=== PATIENT | female | born 1995 | race Caucasian/White ===

== ENCOUNTER 2020-02-08 12:13 | Emergency (ER) | payer BC, MEDICAID, SELFPAY ==
--- NOTE | 2020-02-08 12:20 | ECG_ITS ---
Measurements Intervals [place] Rate: 102 P: 83 MD: 126 QRS: 70 QRSD: 78 T: 28 QT: 316 QTc: 412 Interpretive Statements SINUS TACHYCARDIA POSSIBLE LEFT ATRIAL ENLARGEMENT NONSPECIFIC ST & T-WAVE ABNORMALITY- ANTEROLAT/INF LEADS ABNORMAL ECG Electronically Signed On 02-08-2020 12:48:22 CDT by Tyron Aguilar D.O.
[2020-02-08 12:24] VITALS: BP 104/54; PULSE 94; RESP 14; TEMP 36.6; O2SAT 99
[2020-02-08 12:37] LABS: Basophils Percent Auto 0.2 % (0.2-1.2); Eosinophils Absolute Auto 0.1 K/mm3 (0-0.3); Hematocrit 36.3 % (37.0-47.0); Hemoglobin 12.6 g/dL (12.0-15.0); Immature Granulocyte Absolute 0.06 K/mm3 (0.00-0.031); Immature Granulocyte Percent A 0.5 % (0-0.5); Lymphocytes Absolute Auto 1.58 K/mm3 (0.9-3.2); Lymphocytes Percent Auto 13.9 % (18.3-44.2); Mean Corpuscular HGB Conc 34.7 g/dl (32-36); Mean Corpuscular Hemoglobin 29.8 pg (26-34); Mean Corpuscular Volume 85.8 fl (80-100); Mean Platelet Volume 10.5 fl (7.4-10.4); Monocytes Absolute Auto 0.4 K/mm3 (0.1-0.6); Monocytes Percent Auto 3.5 % (2.6-8.5); Neutrophils Absolute Auto 9.2 K/mm3 (1.3-6.7); Neutrophils Percent Auto 80.9 % (45.5-73.1); Platelet Count Result 291 k/mm3 (150-375); Red Blood Count 4.23 M/mm3 (4.2-5.4); Red Cell Distribution Width 13.6 % (11.5-14.5); White Blood Count 11.4 K/mm3 (4.5-10.0)
[2020-02-08 13:01] LABS: Blood Urea Nitrogen 7 mg/dL (7-17); Calcium 8.8 mg/dL (8.4-10.2); Carbon Dioxide 21 mmol/L (22-30); Chloride 105 mmol/L (98-107); Estimated CRCL calculation 112 ml/min; Estimated Glomerular Filt Rate > 60; Glucose 83 mg/dL (65-105); Potassium 3.9 mmol/L (3.4-5.0); Sodium 134 mmol/L (137-145)
[2020-02-08 13:38] LABS: Add Urine Microscopic? YES; Appearance Urine Cloudy (Clear); Bacteria Urine Trace /hpf; Bilirubin Urine Negative (Negative); Color Urine Yellow (Yellow); Glucose Urine UA Negative (Negative); Ketones Urine Negative (Negative); Leukocyte Esterase Ur 3+ LEU/UL (Negative); Mucus Urine Rare /lpf; Nitrate Urine Negative (Negative); Protein Urine 2+ mg/dL (Negative); Specific Grav Ur 1.018 (1.001-1.035); Squamous Epithelial Cell Urine Few /hpf (Few); WBC Urine >75 /hpf
[2020-02-08 13:42] LABS: Blood Urine Negative (Negative)
[2020-02-08 14:13] VITALS: BP 115/70; PULSE 78
[2020-02-08 14:16] VITALS: BP 121/68; PULSE 74
[2020-02-08 14:17] VITALS: BP 122/71; PULSE 92
--- NOTE | 2020-02-08 14:19 | ED.SYNCOPE ---
HPI - Syncope General Chief Complaint: Syncope Stated Complaint: 12 WEEK PREG, SYNCOPE Time Seen by Provider: 02/08/20 13:32 Source: patient and family Mode of arrival: ambulatory Limitations: no limitations History of Present Illness HPI narrative: Patient is 24 years old female, 12 weeks , was a standing in the kitchen making breakfast suddenly felt lightheadedness, dizziness and passed out for about few seconds, patient denies any injuries or similar symptoms. Patient on vitamins, does not smoke, does not drink or use any drugs. Patient is 2, para 1, 0. Currently patient is asymptomatic. Related Data Allergies Allergy/AdvReac Type Severity Reaction Status Date / Time Penicillins Allergy Intermediate Rash Verified 09/05/17 14:43 monosodium glutamate Allergy Mild RASH Verified 09/17/17 14:55 Review of Systems Review of Systems: Narrative: CONSTITUTIONAL: Denies fever, chills, or sweats. EYES: Denies visual changes, redness, or discharge. ENT: Denies rhinorrhea, congestion, sore throat, or otalgia. CARDIOVASCULAR: Denies chest pain, palpitations, or edema. RESPIRATORY: Denies cough or dyspnea. GASTROINTESTINAL: Denies abdominal pain, nausea, vomiting, or diarrhea. GENITOURINARY: Denies dysuria or hematuria. SKIN: Denies rash or itching. MUSCULOSKELETAL: Denies back pain, joint pain, or myalgia. NEUROLOGIC: Denies headache, numbness, or weakness. PSYCHIATRIC: Denies anxiety or depression. PMFSH Social History Social History Gender identity (if verbalized by the patient): Female Exam Narrative: Exam Narrative: General appearance: Well-developed, well-nourished Skin: Normal color Head: Normocephalic, nontraumatic Eyes: Clear conjunctiva ENT: Oropharynx normal, ears normal, nose normal Neck: Supple, nontender Chest and respiratory: Airway patent, no respiratory distress, no accessory muscle use Heart: Regular rate/rhythm Abdomen: Soft, nontender, no organomegaly, quiet bowel sounds Vascular: Normal peripheral pulses, normal capillary refill. Musculoskeletal: Normal range of motion, nontender back Neurologic: Alert and oriented ?3, HEEL SEAT FITTER is normal as tested, no gross motor deficit Course Course Emergency Course: Improving Vital Signs Vital signs: Vital Signs Temperature 36.6 C 02/08/20 12:24 Pulse Rate 94 02/08/20 12:24 Respiratory Rate 14 02/08/20 12:24 Blood Pressure 104/54 L 02/08/20 12:24 Pulse Oximetry 99 02/08/20 12:24 Temperature 36.6 C 02/08/20 12:24 Pulse Rate 92 02/08/20 14:17 Respiratory Rate 14 02/08/20 12:24 Blood Pressure 122/71 02/08/20 14:17 Pulse Oximetry 99 02/08/20 12:24 MDM - Syncope MDM Narrative Medical decision making narrative: Orthostatic hypotension is my concern. Patient developed lightheadedness and dizziness prior to loss of consciousness. Patient is 12 weeks . My plan to get orthostatic blood pressure, labs, UA, IV fluid. Further plan to follow Lab Data Result diagrams: 02/08/20 12:30 02/08/20 12:30 Labs: Lab Results 02/08/20 02/08/20 02/08/20 Range/Units 12:30 12:30 13:24 WBC 11.4 H (4.5-10.0) K/mm3 RBC 4.23 (4.2-5.4) M/mm3 Hgb 12.6 (12.0-15.0) g/dL Hct 36.3 L (37.0-47.0) % MCV 85.8 (80-100) fl MCH 29.8 (26-34) pg MCHC 34.7 (32-36) g/dl RDW 13.6 (11.5-14.5) % Plt Count 291 (150-375) k/mm3 MPV 10.5 H (7.4-10.4) fl Immature Gran % (Auto) 0.5 (0-0.5) % Neut % (Auto) 80.9 H (45.5-73.1) % Lymph % (Auto) 13.9 L (18.3-44.2) % [place] % (Auto) 3.5 (2.6-8.5) % Eos % (Auto)
[2020-02-08] MEDS: SODIUM CHLORIDE 0.9% IV 1,000 ML 999 ML IV CONT (14:27)
[2020-02-08 15:38] VITALS: BP 138/75; PULSE 72; RESP 16; O2SAT 100
== END 2020-02-08 15:39 | disposition home or self-care (01) ==
PROVIDERS: Emergency Medicine; Emergency Provider Emergency Medicine; PCP Internal Medicine
DX: O23.31 Infections of other parts of urinary tract in pregnancy, first trimester (principal); Z3A.12 12 weeks gestation of pregnancy
CPT/HCPCS: 36415; 80048; 81001; 85025; 87077; 87086; 87088; 87186; 93005; 96361; 96365; 99284; J0696; J7030

== ENCOUNTER 2020-08-09 12:15 | Inpatient (IN) | payer BC, OTHER, SELFPAY ==
[2020-08-09] VITALS (53 sets, daily range): BP systolic 72–123; BP diastolic 32–94; PULSE 65–107; RESP 18; TEMP 36.1–37.2; O2SAT 97–100; BMI 30.4
[2020-08-09 12:48] LABS: Basophils Percent Auto 0.3 % (0.2-1.2); Eosinophils Absolute Auto 0.1 K/mm3 (0-0.3); Eosinophils Percent Auto 0.7 % (0-4.4); Hematocrit 31.8 % (37.0-47.0); Hemoglobin 10.3 g/dL (12.0-15.0); Immature Granulocyte Absolute 0.11 K/mm3 (0.00-0.031); Lymphocytes Absolute Auto 1.88 K/mm3 (0.9-3.2); Lymphocytes Percent Auto 17.5 % (18.3-44.2); Mean Corpuscular HGB Conc 32.4 g/dl (32-36); Mean Corpuscular Hemoglobin 27.5 pg (26-34); Mean Corpuscular Volume 84.8 fl (80-100); Mean Platelet Volume 10.9 fl (7.4-10.4); Monocytes Absolute Auto 0.6 K/mm3 (0.1-0.6); Monocytes Percent Auto 5.2 % (2.6-8.5); Neutrophils Absolute Auto 8.1 K/mm3 (1.3-6.7); Neutrophils Percent Auto 75.3 % (45.5-73.1); Platelet Count Result 237 k/mm3 (150-375); Red Blood Count 3.75 M/mm3 (4.2-5.4); Red Cell Distribution Width 13.7 % (11.5-14.5); White Blood Count 10.8 K/mm3 (4.5-10.0)
[2020-08-09] MEDS: LACTATED RINGERS 1,000 ML 125 ML IV CONT ×3 (12:52→18:01)
[2020-08-09] MEDS: OXYTOCIN 30 UNITS/NS 500 ML 30 UNITS/500 ML BAG IV CONT (12:53)
--- NOTE | 2020-08-09 12:55 | LDADM ---
This patient, Eden Mims, was admitted to Labor/Delivery/Recovery 103 on 08/09/20 at 12:15. Plans for labor, pain management and were discussed with patient. Patient/family oriented to hospital policies and general routines including ID bracelet, bed and alarms, visiting hours, pain management, procedures, bathroom and other care routines, personal items, smoking policy, room service/diet and guest tray routines, infant security routines, and visiting hours. Patient/Family are encouraged to report perceived risks to care and to ask questions if they do not understand what they are told or what they should do. See OBIX for further documentation.
[2020-08-09 13:04] LABS: Potassium 3.7 mmol/L (3.4-5.0)
[2020-08-09 13:06] LABS: Alanine Aminotransferase 10 U/L (4-35); Albumin Level 3.7 g/dL (3.5-5.1); Alkaline Phosphatase 170 U/L (38-126); Anion Gap 8 mmol/L (8-16); Aspartate Amino Transferase 21 U/L (14-36); Bilirubin,Total 0.3 mg/dL (0.2-1.3); Blood Urea Nitrogen 6 mg/dL (7-17); Calcium 8.8 mg/dL (8.4-10.2); Carbon Dioxide 23 mmol/L (22-30); Chloride 106 mmol/L (98-107); Estimated CRCL calculation 130 ml/min; Estimated Glomerular Filt Rate > 60; Glucose 94 mg/dL (65-105); Sodium 137 mmol/L (137-145)
--- NOTE | 2020-08-09 13:30 | WPDOBADMIT ---
Obstetrics - Admit Note Admission Note: Pt here for induction of labor d/t cholestasis. AROM moderate amount of clear odorless fluid. record reviewed. No pertinent additions to the history and/or any subsequent changes in the physical findings that are not consistent with the expected course of the were found. Additions to the history and/or subsequent changes in the physical findings follow. None.
--- NOTE | 2020-08-09 16:02 | WPDANESEPPF ---
Anes - Initial Pre Proc Eval Procedure: labor epidural Date/Time: 08/09/20 16:02 Surgeon: Abida Washington MD Pre Op Diagnosis: labor pain Pre Op Diagnosis: ind Patient Data Age: 24 Gender: F Height: 1.55 m Weight: 73 kg Last Vital Signs Temp 37.2 C 08/09/20 15:30 Pulse 76 08/09/20 16:00 BP 108/51 L 08/09/20 16:00 Pulse Ox 99 08/09/20 15:59 Allergies Allergy/AdvReac Type Severity Reaction Status Date / Time Penicillins Allergy Intermediate Rash Verified 07/21/20 15:47 monosodium glutamate Allergy Mild RASH Verified 07/21/20 15:47 Home Medications Medication Instructions Recorded Confirmed Type calcium carbonate [Tums Ultra] 400 mg PO HS 07/21/20 08/09/20 History prenat.vits,scott,[id number] 1 tablet DAILY 07/21/20 08/09/20 History [ #2] Laboratory Tests 08/09/20 08/09/20 08/09/20 12:33 12:33 12:33 WBC 10.8 K/mm3 H K/mm3 (4.5-10.0) RBC 3.75 M/mm3 L M/mm3 (4.2-5.4) Hgb 10.3 g/dL L g/dL (12.0-15.0) Hct 31.8 % L % (37.0-47.0) MCV 84.8 fl fl (80-100) MCH 27.5 pg pg (26-34) MCHC 32.4 g/dl g/dl (32-36) RDW 13.7 % % (11.5-14.5) Plt Count 237 k/mm3 k/mm3 (150-375) MPV 10.9 fl H fl (7.4-10.4) Immature Gran % (Auto) 1.0 % H % (0-0.5) Neut % (Auto) 75.3 % H % (45.5-73.1) Lymph % (Auto) 17.5 % L % (18.3-44.2) [place] % (Auto) 5.2 % % (2.6-8.5) Eos % (Auto) 0.7 % % (0-4.4) Baso % (Auto) 0.3 % % (0.2-1.2) Lymph # (Auto) 1.88 K/mm3 K/mm3 (0.9-3.2) [place] # (Auto) 0.6 K/mm3 K/mm3 (0.1-0.6) Eos # (Auto) 0.1 K/mm3 K/mm3 (0-0.3) Baso # (Auto) 0.0 K/mm3 K/mm3 (0.0-0.1) Abs Immat Gran (auto) 0.11 K/mm3 H K/mm3 (0.00-0.031) Absolute Neuts (auto) 8.1 K/mm3 H K/mm3 (1.3-6.7) Absolute Nucleated RBC 0.0 K/mm3 K/mm3 (0.0-0.012) Nucleated RBC % 0.0 % % (0.0-0.2) Sodium Potassium Chloride Carbon Dioxide Anion Gap BUN Creatinine Estim Creat Clear Calc Estimated GFR Glucose Calcium Total Bilirubin AST ALT Alkaline Phosphatase Total Protein Albumin Cholic Acid Deoxycholic Acid Chenodeoxycholic Acid Total Bile Acids RPR Pending Blood Type A Positive Antibody Screen Negative 08/09/20 08/09/20 12:33 12:33 WBC RBC Hgb Hct MCV MCH MCHC RDW Plt Count MPV Immature Gran % (Auto) Neut % (Auto) Lymph % (Auto) [place] % (Auto) Eos % (Auto) Baso % (Auto) Lymph # (Auto) [place] # (Auto) Eos # (Auto) Baso # (Auto) Abs Immat Gran (auto) Absolute Neuts (auto) Absolute Nucleated RBC Nucleated RBC % Sodium 137 mmol/L mmol/L (137-145) Potassium 3.7 mmol/L mmol/L (3.4-5.0) Chloride 106 mmol/L mmol/L (98-107) Carbon Dioxide 23 mmol/L mmol/L (22-30) Anion Gap 8 mmol/L mmol/L (8-16) BUN 6 mg/dL L mg/dL (7-17) Creatinine 0.50 mg/dL L mg/dL (0.7-1.0) Estim Creat Clear Calc 130 ml/min ml/min Estimated GFR > 60 (59 - ) Glucose 94 mg/dL mg/dL (65-105) Calcium 8.8 mg/dL mg/dL (8.4-10.2) Total Bilirubin 0.3 mg/dL mg/dL (0.2-1.3) AST 21 U/L U/L (14-36) ALT 10 U/L U/L (4-35) Alkaline Phosphatase 170 U/L H U/L (38-126) Total Protein 7.0 g/dL g/dL (6.3-8.2) Albumin 3.7 g/dL g/dL (3.5-5.1) Cholic A
--- NOTE | 2020-08-09 18:32 | PM.OBPRVD ---
OB - Delivery Note Procedure Delivery date: 08/09/20 Intrapartal events: None Induction method: per pitocin protocol Delivery monitor: external FHT and external uterine Route of delivery: Episiotomy description: None Laceration Description: None Quantitative Blood Loss: 88 Anesthesia type: Epidural Baby Date of : 08/09/20 Time of : 18:23 Weeks of gestation at delivery: 38 Weight (pounds): 8 Weight (ounces): 9 presentation: vertex position: Left Occiput Anterior cord vessel description: Nuchal Cord, Loose and Reduced Narrative: Mother and baby in stable condition. Cord gasses collected and handed off to staff.
[2020-08-09] MEDS: OXYTOCIN 30 UNITS/NS 500 ML 30 UNITS/500 ML BAG 125 UNITS IV CONT (18:57)
[2020-08-09] MEDS: WITCH HAZEL 40 PADS 1 PAD TOPICAL (21:07)
[2020-08-09] MEDS: BENZOCAINE 20% AER SPR (*SP) 56 GM CAN 1 SPRAY TOPICAL (21:07)
--- NOTE | 2020-08-09 21:10 | OBPPTRN ---
Patient transferred to post room # 286 via wheelchair. Support person and present. Oriented to unit, room, information board, rooming in, admission packet and security measures. Patient verbalizes understanding.
[2020-08-09] MEDS: ACETAMINOPHEN 325 MG TABLET 650 MG PO (21:55)
[2020-08-10] MEDS: IBUPROFEN 600 MG TABLET PO ×3 (04:11→17:27)
[2020-08-10 06:05] LABS: Hematocrit 31.9 % (37.0-47.0); Hemoglobin 10.4 g/dL (12.0-15.0)
[2020-08-10 07:55] VITALS: BP 113/62; PULSE 65; RESP 16; TEMP 37.4; O2SAT 99
[2020-08-10] MEDS: MULTIVIT/MIN/PREN/FOL AC/IRON TABLET 1 TAB PO (09:30)
[2020-08-10] MEDS: LANOLIN (LANSINOH) 7.5 GM CREAM 1 APPLIC TOPICAL (09:31)
--- NOTE | 2020-08-10 10:51 | P.PNOB_ITS ---
OB - PN: Subj Subjective Date/time seen: 08/10/20 10:51 Patient comments: no complaints baby status: doing well OB - PN: Obj Data Labs CBC & Chem 7: 08/10/20 04:19 08/09/20 12:33 Labs: Laboratory Results - last 24 hr 08/09/20 08/09/20 08/09/20 12:33 12:33 12:33 WBC 10.8 H RBC 3.75 L Hgb 10.3 L Hct 31.8 L MCV 84.8 MCH 27.5 MCHC 32.4 RDW 13.7 Plt Count 237 MPV 10.9 H Immature Gran % (Auto) 1.0 H Neut % (Auto) 75.3 H Lymph % (Auto) 17.5 L [place] % (Auto) 5.2 Eos % (Auto) 0.7 Baso % (Auto) 0.3 Lymph # (Auto) 1.88 [place] # (Auto) 0.6 Eos # (Auto) 0.1 Baso # (Auto) 0.0 Abs Immat Gran (auto) 0.11 H Absolute Neuts (auto) 8.1 H Absolute Nucleated RBC 0.0 Nucleated RBC % 0.0 Sodium 137 Potassium 3.7 Chloride 106 Carbon Dioxide 23 Anion Gap 8 BUN 6 L Creatinine 0.50 L Estim Creat Clear Calc 130 Estimated GFR > 60 Glucose 94 Calcium 8.8 Total Bilirubin 0.3 AST 21 ALT 10 Alkaline Phosphatase 170 H Total Protein 7.0 Albumin 3.7 Blood Type A Positive Antibody Screen Negative 08/10/20 04:19 WBC RBC Hgb 10.4 L Hct 31.9 L MCV MCH MCHC RDW Plt Count MPV Immature Gran % (Auto) Neut % (Auto) Lymph % (Auto) [place] % (Auto) Eos % (Auto) Baso % (Auto) Lymph # (Auto) [place] # (Auto) Eos # (Auto) Baso # (Auto) Abs Immat Gran (auto) Absolute Neuts (auto) Absolute Nucleated RBC Nucleated RBC % Sodium Potassium Chloride Carbon Dioxide Anion Gap BUN Creatinine Estim Creat Clear Calc Estimated GFR Glucose Calcium Total Bilirubin AST ALT Alkaline Phosphatase Total Protein Albumin Blood Type Antibody Screen OB - PN A/P Plan day: 1 Plan: routine care and discharge home Time Spent With Patient Time: Total time spent is greater than 50% in coordination of care (as documented) at patient's floor/unit and/or counseling patient: Exam Const: General: cooperative Orientation/consciousness: oriented to person Limitations: no limitations
--- NOTE | 2020-08-10 10:53 | PM.OBDSVD ---
DS: Admitting Diagnosis Admitting Diagnosis Admitting Diagnosis: ind OB - DS: Summary OB Procedures : None OB Procedures Intrapartum: Spontaneous Vag Delivery OB Procedures: : None Time Spent with Patient Time attestation: Total time spent providing and/or coordinating discharge services: DS: Data Data Completed and Pending Labs on day of discharge: Labs from last 24 hours 08/10/20 08/09/20 08/09/20 04:19 12:33 12:33 WBC RBC Hgb 10.4 L Hct 31.9 L MCV MCH MCHC RDW Plt Count MPV Immature Gran % (Auto) Neut % (Auto) Lymph % (Auto) [place] % (Auto) Eos % (Auto) Baso % (Auto) Lymph # (Auto) [place] # (Auto) Eos # (Auto) Baso # (Auto) Abs Immat Gran (auto) Absolute Neuts (auto) Absolute Nucleated RBC Nucleated RBC % Sodium 137 Potassium 3.7 Chloride 106 Carbon Dioxide 23 Anion Gap 8 BUN 6 L Creatinine 0.50 L Estim Creat Clear Calc 130 Estimated GFR > 60 Glucose 94 Calcium 8.8 Total Bilirubin 0.3 AST 21 ALT 10 Alkaline Phosphatase 170 H Total Protein 7.0 Albumin 3.7 Cholic Acid Pending Deoxycholic Acid Pending Chenodeoxycholic Acid Pending Total Bile Acids Pending RPR Blood Type Antibody Screen 08/09/20 08/09/20 08/09/20 12:33 12:33 12:33 WBC 10.8 H RBC 3.75 L Hgb 10.3 L Hct 31.8 L MCV 84.8 MCH 27.5 MCHC 32.4 RDW 13.7 Plt Count 237 MPV 10.9 H Immature Gran % (Auto) 1.0 H Neut % (Auto) 75.3 H Lymph % (Auto) 17.5 L [place] % (Auto) 5.2 Eos % (Auto) 0.7 Baso % (Auto) 0.3 Lymph # (Auto) 1.88 [place] # (Auto) 0.6 Eos # (Auto) 0.1 Baso # (Auto) 0.0 Abs Immat Gran (auto) 0.11 H Absolute Neuts (auto) 8.1 H Absolute Nucleated RBC 0.0 Nucleated RBC % 0.0 Sodium Potassium Chloride Carbon Dioxide Anion Gap BUN Creatinine Estim Creat Clear Calc Estimated GFR Glucose Calcium Total Bilirubin AST ALT Alkaline Phosphatase Total Protein Albumin Cholic Acid Deoxycholic Acid Chenodeoxycholic Acid Total Bile Acids RPR Pending Blood Type A Positive Antibody Screen Negative Discharge Plan Discharge Attending physician on discharge: Abida Washington Discharging Clinician: Valeri Kathleen Patient Disposition: Home, Self-Care Activity: pelvic rest Diet: regular Patient Instructions: Antibiotic Form Stand Alone Forms: General Discharge Information Follow-up/Referrals: Nancy Schneider CNM [Primary Care Provider] - 4 Weeks Discharge Medications: Continued calcium carbonate [Tums Ultra] 400 mg calcium (1,000 mg) Tablet,Chewable 400 mg PO HS RF: 0 #2 Tablet 1 tablet DAILY RF: 0 Date of admission: 08/09/20 12:15 Primary Care Provider: Nancy Schneider Admitting Provider: Abida Washington Attending physician on admission: Abida Washington Condition: Stable
--- NOTE | 2020-08-10 11:15 | WPDANLDPN2 ---
Anes-Prog Note L&D Date/Time: 08/10/20 11:15 Comfortable throughout: labor and delivery Neuraxial method: epidural Epidural/Spinal procedure site: clean & non-tender Neuro status: Neuro function grossly intact. Cardiovascular status: normal Respiratory status: normal Airway patency: baseline Mental status: baseline Post-Op hydration status: normal Vital Signs: Last Vital Signs Temp 37.4 C 08/10/20 07:55 Pulse 65 08/10/20 07:55 Resp 16 08/10/20 07:55 BP 113/62 08/10/20 07:55 Pulse Ox 99 08/10/20 07:55 Pain score (VAS): 09/24 I/O: Intake & Output 08/09/20 08/10/20 08/10/20 23:59 07:59 15:59 Intake Total 1700 500 Output Total 650 Balance 1050 500 Post-procedural complaints: none Patient feedback: Patient satisfied with anesthetic care.
[2020-08-11 09:00] LABS: Rapid Plasma Reagin Non-Reactive (NonReactive)
[2020-08-14 10:02] VITALS: BP 114/70; PULSE 90; RESP 16; TEMP 37.1; O2SAT 99
[2020-08-14 19:08] LABS: Chenodeoxycholic Acid 1.7 umol/L (< OR = 3.9); Cholic Acid 0.8 umol/L (< OR = 2.8); Deoxycholic Acid 2.7 umol/L (< OR = 2.3); Total Bile Acids 5.2 umol/L (< OR = 8.3)
== END 2020-08-10 20:18 | disposition home or self-care (01) | DRG 807 ==
LOC: ANHLDR 12:18 → ANHOB2 21:13
PROVIDERS: Admitting Provider Obstetrics & Gynecology; PCP Advanced Practice Midwife; Visit Provider Obstetrics & Gynecology
DX: O26.62 Liver and biliary tract disorders in childbirth (principal); Z37.0 Single live birth; O62.3 Precipitate labor; O69.2XX0 Labor and delivery complicated by other cord entanglement, with compression, not applicable or unspecified; Z3A.38 38 weeks gestation of pregnancy; Z23 Encounter for immunization
CPT/HCPCS: 36415; 80053; 82542; 85014; 85018; 85025; 86592; 86850; 86900; 86901; 90471; 90653; A9270; G0008; J2590; J2795; J7120

== ENCOUNTER 2021-09-11 14:27 | Observation (INO) | payer OTHER, SELFPAY ==
[2021-09-11 14:55] VITALS: BP 126/72; PULSE 98
[2021-09-11 15:00] VITALS: BP 130/71; PULSE 93; TEMP 37.3
[2021-09-11 15:10] VITALS: BMI 30.2
--- NOTE | 2021-09-11 15:10 | OBADM ---
This patient, Eden Mims, admitted to the OB room 117 for observation. Patient/family oriented to hospital policies and general routines including ID bracelet, bed and alarms, visiting hours, pain management, procedures, bathroom and other care routines, personal items, smoking policy, room service/diet, and visiting hours. Patient/Family are encouraged to report perceived risks to care and to ask questions if they do not understand what they are told or what they should do.
[2021-09-11 16:00] VITALS: BP 116/66; PULSE 91
--- NOTE | 2021-10-01 07:40 | PM.OBTRLD ---
OB - Triage/Final Diagnosis Visit Information Comments/Additional reasons for admission: I have assessed the risk for this patient, Eden Mims, and determined that she would benefit from observation care. Final Diagnosis (1) False labor: Code(s): O47.9 - False labor, unspecified Status: Acute
== END 2021-09-11 16:37 | disposition home or self-care (01) ==
PROVIDERS: Admitting Provider Obstetrics & Gynecology; PCP Advanced Practice Midwife; Visit Provider Obstetrics & Gynecology
DX: O47.03 False labor before 37 completed weeks of gestation, third trimester (principal); Z3A.33 33 weeks gestation of pregnancy
CPT/HCPCS: 84112; G0378; G0379

== ENCOUNTER 2021-10-19 07:28 | Inpatient (IN) | payer OTHER, SELFPAY ==
[2021-10-19] VITALS (56 sets, daily range): BP systolic 76–135; BP diastolic 31–82; PULSE 62–114; RESP 16–20; TEMP 36.4–36.6; O2SAT 96–100; BMI 34.1
--- OUTSIDE RECORDS SUMMARY | 2021-10-19 07:35 | XMS_ITS | Encounter Summary ---
:1995 Author Reason for Visit OB visit 38w4d Assessment and Plan 1. Routine care Discussion Note: None recorded.Patient educational handouts: No information available. Plan of Care Reminders Provider Appointments None ? ? recorded. Lab None ? ? recorded. Referral None ? ? recorded. Procedures None ? ? recorded. Surgeries None ? ? recorded. Imaging None ? ? recorded. Medications Name Start Date ? ? 28 mg iron-800 mcg tablet 03/13/2017 Medications Administered None recorded. Vitals Height Weight BMI Blood Pressure 5 ft 1 in 185 lbs 35 kg/m2 123/76 mm[Hg] Results Lab Results None recorded. Allergies Code Code System Name Reaction Severity Onset Penicillins Hives ? ? Problems Name Status Onset Date Source ? Active 04/12/2021 ? Procedures Date Name Performed by ? 09/18/2021 US, Obstetric, Biophysical Profile + Katheryn parekh Non-stress Test [address] [place] [address]
--- OUTSIDE RECORDS SUMMARY | 2021-10-19 07:35 | XMS_ITS | Encounter Summary ---
:1995 Author Reason for Visit OB visit 35w3d Assessment and Plan 1. Routine care Discussion [...] BMI Blood Pressure 5 ft 1 in 179 lbs 33.8 kg/m2 115/73 mm[Hg] Results Lab Results None recorded. Allergies Code Code System Name Reaction Severity Onset Penicillins Hives ? ? Problems Name Status Onset Date Source ? Active 04/12/2021 ? Procedures Date Name Performed by ? 08/28/2021 US, Obstetric, Follow-up [place] [address] [place] [address]
--- OUTSIDE RECORDS SUMMARY | 2021-10-19 07:35 | XMS_ITS | Encounter Summary ---
:1995 Author Reason for Visit None recorded. Assessment and Plan 1. Cholestasis of ? US, obstetric, biophysical profile + non-stress test Discussion Note: None recorded.Patient educational handouts: No information available. Plan of Care Reminders Provider Appointments None recorded. ? ? Lab None recorded. ? ? Referral None recorded. ? ? Procedures None recorded. ? ? Surgeries None recorded. ? ? Imaging US, Obstetric, Pr naila Biophysical Profile + 10/03/2021 Non-stress Test Medications Name Start Date ? ? 28 mg iron-800 mcg tablet 03/13/2017 Medications Administered None recorded. Vitals None recorded. Results Lab Results None recorded. Allergies Code Code System Name Reaction Severity Onset Penicillins Hives ? ? Problems Name Status Onset Date Source ? Active 04/12/2021 ? Procedures Date Name Performed by ? 09/04/2021 US, Obstetric, Biophysical Profile + Katheryn parekh Non-stress Test [address]
--- OUTSIDE RECORDS SUMMARY | 2021-10-19 07:35 | XMS_ITS | Encounter Summary ---
[...] None recorded. ? ? Imaging US, Obstetric, Ranjith yoo Biophysical Profile + 10/16/2021 Non-stress Test Medications Name Start Date ? [...]
--- OUTSIDE RECORDS SUMMARY | 2021-10-19 07:35 | XMS_ITS | Encounter Summary ---
:1995 Author Reason for Visit None recorded. Assessment and Plan 1. Cholestasis of ? non-stress test Discussion Note: None recorded.Patient educational handouts: No information available. Plan of Care Reminders Provider Appointments None ? ? recorded. Lab None ? ? recorded. Referral None ? ? recorded. Procedures None ? ? recorded. Surgeries None ? ? recorded. Imaging 10/16/2021 [place] Non-stress Test Medications Name Start Date ? [...] Katheryn parekh Non-stress Test [address] [place] [address]
--- OUTSIDE RECORDS SUMMARY | 2021-10-19 07:35 | XMS_ITS | Encounter Summary ---
:1995 Author Reason for Visit OB visit OB [id number] EDC 10/26/2021 LMP 01/16/2021 Assessment and Plan Assessment Note Patient is _36__weeks . Dis cussed plan. 1. Routine care Discussion Note: None recorded.Patient [...] BMI Blood Pressure 5 ft 1 in 182 lbs 34.4 kg/m2 123/75 mm[Hg] Results Lab Results None recorded. Allergies Code Code System Name Reaction Severity Onset Penicillins Hives ? ? Problems Name Status Onset Date Source ? Active 04/12/2021 ? Procedures Date Name Performed by ? 09/04/2021 US, Obstetric, Biophysical Pr
--- OUTSIDE RECORDS SUMMARY | 2021-10-19 07:35 | XMS_ITS | Encounter Summary ---
[...] None recorded. ? ? Imaging US, Obstetric, [facility] Biophysical Profile + 09/18/2021 Non-stress Test Medications Name Start Date ? ? 28 mg iron-800 mcg tablet 03/13/2017 Medications Administered None recorded. Vitals None recorded. Results Lab Results None recorded. Allergies Code Code System Name Reaction Severity Onset Penicillins Hives ? ? Problems Name Status Onset Date Source ? Active 04/12/2021 ? Procedures Date Name Performed by ? 08/28/2021 US, Obstetric, Follow-up [place] [address]
--- OUTSIDE RECORDS SUMMARY | 2021-10-19 07:35 | XMS_ITS ---
:1995 Author Allergies Code Code System Name Reaction Severity Status Onset Penicillins ? ? Active ? Medications Name Status Start Date Stop Date ? ? azithromycin 500 mg tablet Completed ? 02/20 Mononessa (28) 0.25 mg-35 mcg tablet Completed ? 02/20/2017 TAKE 1 TABLET BY MOUTH EVERY DAY phenazopyridine 200 mg tablet Completed ? Active ? Not available sulfamethoxazole 800 mg-trimethoprim Completed ? 02/20/2017 160 mg tablet Tubersol 5 tub. unit/0.1 mL intradermal injection solution Activ e ? Not available Inject 0.1 mL by intradermal route. Problems Name Status Onset Date Source ? Eruption Active ? Encounter Procedures Notes: None Results Lab Results Date Name Specimen Result Interpretation Description Value Range Status Address ? 12/08/2015 Urinalysis, ? Color pale ? Final [facility] (Lab): [address] [facility] ? ? ? Clarity hazy ? Final [facility]
--- OUTSIDE RECORDS SUMMARY | 2021-10-19 07:35 | XMS_ITS | Encounter Summary ---
:1995 Author Reason for Visit None recorded. Assessment and Plan 1. Cholestasis of ? non-stress test Discussion Note: None recorded.Patient educational handouts: No information available. Plan of Care Reminders Provider Appointments None ? ? recorded. Lab None ? ? recorded. Referral None ? ? recorded. Procedures None ? ? recorded. Surgeries None ? ? recorded. Imaging 09/24/2021 [place] Non-stress Test Medications Name Start Date ? ? 28 mg iron-800 mcg tablet 03/13/2017 Medications Administered None recorded. Vitals None recorded. Results Lab Results None recorded. Allergies Code Code System Name Reaction Severity Onset Penicillins Hives ? ? Problems Name Status Onset Date Source ? Active 04/12/2021 ? Procedures Date Name Performed by ? 08/28/2021 US, Obstetric, Follow-up [place] [address] [place] [address] [phone]
--- OUTSIDE RECORDS SUMMARY | 2021-10-19 07:35 | XMS_ITS | Encounter Summary ---
:1995 Author Reason for Visit None recorded. Assessment and Plan 1. Cholestasis of ? non-stress test Discussion Note: None recorded.Patient educational handouts: No information available. Plan of Care Reminders Provider Appointments None ? ? recorded. Lab None ? ? recorded. Referral None ? ? recorded. Procedures None ? ? recorded. Surgeries None ? ? recorded. Imaging 10/03/2021 [place] Non-stress Test Medications Name Start Date ? [...] Katheryn parekh Non-stress Test [address] [place] [address]
--- OUTSIDE RECORDS SUMMARY | 2021-10-19 07:35 | XMS_ITS | Encounter Summary ---
[...] US, Obstetric, Ranjith yoo Biophysical Profile + 10/09/2021 Non-stress Test Medications Name Start Date ? [...]
--- OUTSIDE RECORDS SUMMARY | 2021-10-19 07:35 | XMS_ITS | Encounter Summary ---
:1995 Author Reason for Visit OB visit 37w4d Assessment and Plan Assessment Note Patient is ___weeks . Discu ssed plan. Discussion Note: None recorded.Patient educational handouts: No information available. Plan of Care Reminders Provider Appointments None ? ? recorded. Lab None ? ? recorded. Referral None ? ? recorded. Procedures None ? ? recorded. Surgeries None ? ? recorded. Imaging None ? ? recorded. Medications Name Start Date ? ? 28 mg iron-800 mcg tablet 03/13/2017 Medications Administered None recorded. Vitals Weight Blood Pressure 181 lbs 107/70 mm[Hg] Results Lab Results None recorded. Allergies Code Code System Name Reaction Severity Onset Penicillins Hives ? ? Problems Name Status Onset Date Source ? Active 04/12/2021 ? Procedures Date Name Performed by ? 09/18/2021 US, Obstetric, Biophysical Profile + Katheryn parekh Non-stress Test [address]
--- OUTSIDE RECORDS SUMMARY | 2021-10-19 07:35 | XMS_ITS ---
:1995 Author Care Team Providers Name Role Phone Nancy Schneider Primary Care Provider Unavailable Allergies Code Code System Name Reaction Severity Status Onset Penicillins Hives ? Active ? Medications Name Status Start Date Stop Date ? ? azithromycin 250 mg tablet Completed ? 08/17 famotidine 20 mg tablet Completed ? 03/14/20 21 TAKE 1 TABLET BY MOUTH EVERY 12 HOURS FOR 14 DAYS ID NOW COVID-19 Test Kit Completed ? 021 USE DIRECTED Keflex 500 mg capsule Completed 09/02/2017 05/29/2018 take 1 capsule by oral route every 12 hours naproxen 500 mg tablet Completed ? TAKE 1 TABLET BY MOUTH TWICE DAILY WITH FOOD nitrofurantoin monohydrate/macrocrystals 100 mg capsule Complete d ? 03/14/2021 TAKE 1 CAPSULE BY MOUTH EVERY 12 HOURS FOR 10 DAYS ondansetron HCl 4 mg tablet Completed ? 07/17 TK 1 T PO Q 6 H PRN prednisone 20 mg tablet Completed ? 03/14/20 21 TAKE 1 TABLET BY MOUTH EVERY DAY FOR 5 DAYS Completed ? 09/11/2020 28 mg iron-800 mcg Active 03/13/2017 Not available tablet Tamiflu 75 mg capsule Completed 07/28/2017 05/29/2018 take 1 capsule by oral route every day Problems Name Status Onset Date Source ? Amenorrhea Unknown 03/13/2017 History Detection Examination Unknown 03/13/[address] Concept Unknown 03/13/2017 History , Childbirth and [place] Unknown 03/31/2017
--- OUTSIDE RECORDS SUMMARY | 2021-10-19 07:35 | XMS_ITS | Encounter Summary ---
:1995 Author Reason for Visit NST [id number] EDC 10/26/2021 Assessment and Plan 1. Cholestasis of ? non-stress test Discussion Note: None recorded.Patient educational handouts: No information available. Plan of Care Reminders Provider Appointments None ? ? recorded. Lab None ? ? recorded. Referral None ? ? recorded. Procedures None ? ? recorded. Surgeries None ? ? recorded. Imaging 10/09/2021 [place] Non-stress Test Medications Name Start Date ? [...] Katheryn parekh Non-stress Test [address] [place] [address]
--- OUTSIDE RECORDS SUMMARY | 2021-10-19 07:35 | XMS_ITS | Encounter Summary ---
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 Plan of Care Reminders Provider Appointments None ? ? recorded. Lab None ? ? recorded. Referral None ? ? recorded. Procedures None ? ? recorded. Surgeries None ? ? recorded. Imaging 09/18/2021 [place] Non-stress Test Medications Name Start Date ? ? 28 mg iron-800 mcg tablet 03/13/2017 Medications Administered None recorded. Vitals Height Weight BMI Blood Pressure 5 ft 1 in 175 lbs 33.1 kg/m2 111/67 mm[Hg] Results Lab Results None recorded. Allergies Code Code System Name Reaction Severity Onset Penicillins Hives ? ? Problems Name Status Onset Date Source ? Active 04/12/2021 ? Procedures Date Name Performed by ? 08/28/2021 US, Obstetric, Follow-up [place] [address]
--- OUTSIDE RECORDS SUMMARY | 2021-10-19 07:35 | XMS_ITS | Encounter Summary ---
:1995 Author Reason for Visit None recorded. Assessment and Plan 1. Cholestasis of ? US, obstetric, follow-up ? US, obstetric, biophysical profile + non-stress test Discussion Note: None recorded.Patient educational handouts: No information available. Plan of Care Reminders Provider Appointments None recorded. ? ? Lab None recorded. ? ? Referral None recorded. ? ? Procedures None recorded. ? ? Surgeries None recorded. ? ? Imaging US, Obstetric, Ranjith yoo Follow-up 09/24/2021 ? US, Obstetric, Ranjith yoo Biophysical Profile + 09/24/2021 Non-stress Test Medications Name Start Date ? ? 28 mg iron-800 mcg tablet 03/13/2017 Medications Administered None recorded. Vitals None recorded. Results Lab Results None recorded. Allergies Code Code System Name Reaction Severity Onset Penicillins Hives ? ? Problems Name Status Onset Date Source ? Active 04/12/2021 ? Procedures Date Name Performed by
--- OUTSIDE RECORDS SUMMARY | 2021-10-19 07:36 | XMS_ITS | Encounter Summary ---
:1995 Author Reason for Visit OB visit Assessment and Plan Assessment Note Patient is ___weeks . Discu ssed plan. 1. Hereditary thrombophilia 2. 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 Plan of Care Reminders Provider Appointments None ? ? recorded. Lab Bile 08/02/2021 [place] [facility] age Acids, Total, Serum Hospital ([facility]) Referral None ? ? recorded. Procedures None ? ? recorded. Surgeries None ? ? recorded. Imaging None ? ? recorded. Medications Name Start Date ? ? 28 mg iron-800 mcg tablet 03/13/2017 Medications Administered None recorded. Vitals Height Weight BMI Blood Pressure 5 ft 1 in 170 lbs 32.1 kg/m2 112/71 mm[Hg] Results Lab Results Date Name Specimen Result Interpretation Description Value Range Status Address ? 08/02/2021 Bile ? Bile 10 umol/L 0-19 Final [facility]: 25 Acids, Acids umol/L [address], [place] Serum Allergies
--- OUTSIDE RECORDS SUMMARY | 2021-10-19 07:36 | XMS_ITS | Encounter Summary ---
:1995 Author Reason for Visit OB visit OB [id number] EDC 10/26/2021 LMP 01/16/2021 Assessment and Plan Assessment Note Patient is _30__weeks . Dis cussed plan. 1. Routine care [...] BMI Blood Pressure 5 ft 1 in 174 lbs 32.9 kg/m2 109/72 mm[Hg] Results Lab Results None recorded. Allergies Code Code System Name Reaction Severity Onset Penicillins Hives ? ? Problems Name Status Onset Date Source ? Active 04/12/2021 ? Procedures None recorded. Vaccine List None recorded. Social History Tobacco Smoking Status Never Smoker What is the highest grade or level of [id number]
--- OUTSIDE RECORDS SUMMARY | 2021-10-19 07:36 | XMS_ITS | Encounter Summary ---
[...] None recorded. ? ? Imaging US, Obstetric, [facility] Biophysical Profile + 09/04/2021 Non-stress Test Medications Name Start Date ? ? 28 mg iron-800 mcg tablet 03/13/2017 Medications Administered None recorded. Vitals None recorded. Results Lab Results None recorded. Allergies Code Code System Name Reaction Severity Onset Penicillins Hives ? ? Problems Name Status Onset Date Source ? Active 04/12/2021 ? Procedures Date Name Performed by ? 08/28/2021 US, Obstetric, Follow-up [place] [address]
--- OUTSIDE RECORDS SUMMARY | 2021-10-19 07:36 | XMS_ITS | Encounter Summary ---
:1995 Author Reason for Visit None recorded. Assessment and Plan 1. Cholestasis of ? US, obstetric, follow-up Discussion Note: None recorded.Patient educational handouts: No information available. Plan of Care Reminders Provider Appointments None ? ? recorded. Lab None ? ? recorded. Referral None ? ? recorded. Procedures None ? ? recorded. Surgeries None ? ? recorded. Imaging US, 08/28/2021 [place] Obstetric, Follow-up Medications Name Start Date ? ? 28 mg iron-800 mcg tablet 03/13/2017 Medications Administered None recorded. Vitals None recorded. Results Lab Results None recorded. Allergies Code Code System Name Reaction Severity Onset Penicillins Hives ? ? Problems Name Status Onset Date Source ? Active 04/12/2021 ? Procedures Date Name Performed by ? 08/28/2021 US, Obstetric, Follow-up [place] [address] [place] [address] (
--- OUTSIDE RECORDS SUMMARY | 2021-10-19 07:36 | XMS_ITS | Encounter Summary ---
:1995 Author Reason for Visit None recorded. Assessment and Plan 1. Cholestasis of ? non-stress test Discussion Note: None recorded.Patient educational handouts: No information available. Plan of Care Reminders Provider Appointments None ? ? recorded. Lab None ? ? recorded. Referral None ? ? recorded. Procedures None ? ? recorded. Surgeries None ? ? recorded. Imaging 09/04/2021 [place] Non-stress Test Medications Name Start Date ? ? 28 mg iron-800 mcg tablet 03/13/2017 Medications Administered None recorded. Vitals None recorded. Results Lab Results None recorded. Allergies Code Code System Name Reaction Severity Onset Penicillins Hives ? ? Problems Name Status Onset Date Source ? Active 04/12/2021 ? Procedures Date Name Performed by ? 08/28/2021 US, Obstetric, Follow-up [place] [address] [place] [address] [phone]
--- OUTSIDE RECORDS SUMMARY | 2021-10-19 07:36 | XMS_ITS | Encounter Summary ---
:1995 Author Reason for Visit OB visit 32w4d Assessment and Plan 1. Routine care Discussion [...] ft 1 in 175 lbs 33.1 kg/m2 121/72 mm[Hg] Results Lab Results None recorded. Allergies Code Code System Name Reaction Severity Onset Penicillins Hives ? ? Problems Name Status Onset Date Source ? Active 04/12/2021 ? Procedures Date Name Performed by ? 08/28/2021 US, Obstetric, Follow-up [place] [address] [place] [address]
--- NOTE | 2021-10-19 07:38 | LDADM ---
This patient, Eden Mims, was admitted to Labor/Delivery/Recovery 108 on 10/19/21 at 07:28. Plans for labor, pain management and were discussed with patient. Patient/family oriented to hospital policies and general routines including ID bracelet, bed and alarms, visiting hours, pain management, procedures, bathroom and other care routines, personal items, smoking policy, room service/diet and guest tray routines, infant security routines, and visiting hours. Patient/Family are encouraged to report perceived risks to care and to ask questions if they do not understand what they are told or what they should do. See OBIX for further documentation.
[2021-10-19] MEDS: OXYTOCIN 30 UNITS/NS 500 ML 30 UNITS/500 ML BAG IV CONT (08:20)
[2021-10-19] MEDS: LACTATED RINGERS 1,000 ML 125 ML IV CONT ×2 (08:20→11:17)
--- NOTE | 2021-10-19 08:21 | PM.IMHP ---
H&P: HPI History of Present Illness Date/Time: 10/19/21 08:21 26 y/o @ 39 Weeks here for induction of labor. Chief Complaint: Induction of labor Review of Systems Review of Systems: All systems reviewed & are unremarkable except as noted in HPI and below Constitutional: Constitutional: Reports as per HPI and Reports no additional constitutional complaints Eyes: Eyes: Reports as per HPI ENT: Reports system reviewed and no additional complaints, except as documented Cardiovascular: Cardiovascular: Reports as per HPI Respiratory: Respiratory: Reports as per HPI Gastrointestinal: Gastrointestinal: Reports as per HPI Genitourinary: Genitourinary: Reports no additional female genitourinary complaints Musculoskeletal: Musculoskeletal: Reports no additional musculoskeletal complaints Integumentary/Breasts: Skin/Breast: Reports system reviewed and no additional complaints, except as docu Neurologic: Reports system reviewed and no additional complaints, except as documented Psychiatric: Psychiatric: Reports no additional psychiatric complaints Endocrine: Endocrine: Reports no additional endocrine complaints Hematologic/Lymphatic: Hematologic/Lymphatic: Reports no additional hematologic/lymphatic complaints Allergic/Immunologic: Allergic/Immunologic: Reports no additional allergic/immunologic complaints [facility] Family History Family History Sibling Bipolar 1 disorder, depressed Social History Social History Smoking status: Never smoker Substance use: never Gender identity (if verbalized by the patient): Female Spiritual care concerns: No Meds Home Medications and Allergies Home Medications Medication Instructions Recorded Confirmed Type prenat.vits,scott,ktn-apzf-[id number] 1 tablet DAILY 07/21/20 10/19/21 History cholecalciferol (vitamin D3) 2,000 unit PO DAILY 09/11/21 10/19/21 History [Vitamin D3] Allergies Allergy/AdvReac Type Severity Reaction Status Date / Time Penicillins Allergy Intermediate Rash Verified 07/21/20 15:47 monosodium glutamate Allergy Mild RASH Verified 07/21/20 15:47 Vital Signs Vital Signs - 24 hr 10/19/21 07:50 Temperature 97.8 F Pulse Rate 114 H Respiratory Rate 18 Blood Pressure 115/61 Exam Const: General: cooperative and healthy appearing Orientation/consciousness: oriented to person, oriented to place, oriented to time and patient oriented x3 Limitations: no limitations HENMT: Head: normal to inspection Ears: hearing grossly normal bilaterally General nose exam: Normal external nose present Face and sinus: normal facial exam Mouth: Yes Normal oral and palatal mucosa present Teeth and gingiva: dentition normal Throat: posterior oropharynx normal Eyes: General: appearance normal, both eyes and all related structures Neck: Neck: normal visual inspection Thyroid: thyroid normal Chest: Chest palpation & inspection: normal inspection of the chest Resp: Effort & Inspection: normal respiratory effort Auscultation: clear to auscultation bilaterally Cardio: Rate: regular rate Rhythm: regular rhythm GI: Inspection: normal to inspection : General: Yes bimanual renal exam normal bilaterally Skin: General skin exam: normal color and no rashes or lesions noted Neuro: General: oriented to person, oriented to place, oriented to time and patient oriented x3 Extrem: General: normal to inspection Psych: Mental Status: mental status grossly normal
--- NOTE | 2021-10-19 08:22 | WPDOBADMIT ---
Obstetrics - Admit Note Admission Note: 26 y/o at 39 weeks here for induction of labor. record reviewed. No pertinent additions to the history and/or any subsequent changes in the physical findings that are not consistent with the expected course of the were found. Additions to the history and/or subsequent changes in the physical findings follow. None.
[2021-10-19 08:24] LABS: Basophils Percent Auto 0.2 % (0.2-1.2); Eosinophils Absolute Auto 0.1 K/mm3 (0-0.3); Eosinophils Percent Auto 0.8 % (0-4.4); Hematocrit 32.6 % (37.0-47.0); Hemoglobin 10.6 g/dL (12.0-15.0); Immature Granulocyte Absolute 0.09 K/mm3 (0.00-0.031); Immature Granulocyte Percent A 0.9 % (0-0.5); Lymphocytes Absolute Auto 1.54 K/mm3 (0.9-3.2); Lymphocytes Percent Auto 14.9 % (18.3-44.2); Mean Corpuscular HGB Conc 32.5 g/dl (32-36); Mean Corpuscular Hemoglobin 26.8 pg (26-34); Mean Corpuscular Volume 82.5 fl (80-100); Mean Platelet Volume 10.7 fl (7.4-10.4); Monocytes Absolute Auto 0.6 K/mm3 (0.1-0.6); Monocytes Percent Auto 5.5 % (2.6-8.5); Neutrophils Absolute Auto 8.1 K/mm3 (1.3-6.7); Neutrophils Percent Auto 77.7 % (45.5-73.1); Platelet Count Result 239 k/mm3 (150-375); Red Blood Count 3.95 M/mm3 (4.2-5.4); Red Cell Distribution Width 14.4 % (11.5-14.5); White Blood Count 10.4 K/mm3 (4.5-10.0)
[2021-10-19 09:25] LABS: Rapid Plasma Reagin Non-Reactive (NonReactive)
[2021-10-19] MEDS: fentaNYL CITRATE INJ (*CRX) 100 MCG/2 ML VIAL 50 MCG IV PUSH ×2 (10:07→10:30)
--- NOTE | 2021-10-19 11:37 | WPDANESEPPF ---
Anes - Initial Pre Proc Eval Date/Time: 10/19/21 11:37 Surgeon: Abida Washington MD Pre Op Diagnosis: IOL Patient Data Age: 26 Gender: F Height: 1.55 m Weight: 82 kg Last Vital Signs Temp 36.6 C 10/19/21 11:33 Pulse 75 10/19/21 11:35 Resp 18 10/19/21 11:33 BP 112/49 L 10/19/21 11:35 Pulse Ox 100 10/19/21 11:36 Allergies Allergy/AdvReac Type Severity Reaction Status Date / Time Penicillins Allergy Intermediate Rash Verified 07/21/20 15:47 monosodium glutamate Allergy Mild RASH Verified 07/21/20 15:47 Home Medications Medication Instructions Recorded Confirmed Type prenat.vits,scott,ixo-dvrt-tvbsx 1 tablet DAILY 07/21/20 10/19/21 History cholecalciferol (vitamin D3) 2,000 unit PO DAILY 09/11/21 10/19/21 History [Vitamin D3] Laboratory Tests 10/19/21 10/19/21 10/19/21 08:02 08:02 08:02 WBC 10.4 K/mm3 H K/mm3 (4.5-10.0) RBC 3.95 M/mm3 L M/mm3 (4.2-5.4) Hgb 10.6 g/dL L g/dL (12.0-15.0) Hct 32.6 % L % (37.0-47.0) MCV 82.5 fl fl (80-100) MCH 26.8 pg pg (26-34) MCHC 32.5 g/dl g/dl (32-36) RDW 14.4 % % (11.5-14.5) Plt Count 239 k/mm3 k/mm3 (150-375) MPV 10.7 fl H fl (7.4-10.4) Immature Gran % (Auto) 0.9 % H % (0-0.5) Neut % (Auto) 77.7 % H % (45.5-73.1) Lymph % (Auto) 14.9 % L % (18.3-44.2) [place] % (Auto) 5.5 % % (2.6-8.5) Eos % (Auto) 0.8 % % (0-4.4) Baso % (Auto) 0.2 % % (0.2-1.2) Lymph # (Auto) 1.54 K/mm3 K/mm3 (0.9-3.2) [place] # (Auto) 0.6 K/mm3 K/mm3 (0.1-0.6) Eos # (Auto) 0.1 K/mm3 K/mm3 (0-0.3) Baso # (Auto) 0.0 K/mm3 K/mm3 (0.0-0.1) Abs Immat Gran (auto) 0.09 K/mm3 H K/mm3 (0.00-0.031) Absolute Neuts (auto) 8.1 K/mm3 H K/mm3 (1.3-6.7) Absolute Nucleated RBC 0.0 K/mm3 K/mm3 (0.0-0.012) Nucleated RBC % 0.0 % % (0.0-0.2) RPR Non-reactive (NonReactive) Blood Type A Positive Antibody Screen Negative Patient hx anesthesia problems: none Family hx anesthesia problems: none Results Review: All pre-operative results and documents have been reviewed as part of the pre-operative evaluation. [facility] Family History Family History Sibling Bipolar 1 disorder, depressed Social History Social History Smoking status: Never smoker Substance use: never Gender identity (if verbalized by the patient): Female Spiritual care concerns: No Anes - Eval Final PreProcedure Day of Procedure 10/19/21 11:37 Patient weight: obese Heart: regular rate and rhythm Lungs: clear to auscultation Neurological: alert and oriented ASA classification: II Emergent: no Anesthetic plan: proceed Anesthesia type and monitoring: regional epidural and standard monitoring Results Review: All pre-operative results and documents have been reviewed as part of the pre-operative evaluation. Informed Consent: The patient's anesthetic plan and its attendant risks and benefits were discussed with the patient/family/POA. Questions were solicited and answers provided to the satisfaction of the patient/family/POA.
[2021-10-19] MEDS: PHENYLEPHRINE 1,000 MCG/10 ML SYRINGE 100 MCG IV PUSH (12:03)
--- NOTE | 2021-10-19 13:36 | PM.OBPRVD ---
OB - Delivery Note Procedure Delivery date: 10/19/21 Procedure: Intrapartal events: None Induction method: per pitocin protocol Delivery monitor: external FHT and external uterine Route of delivery: Episiotomy description: None Laceration Description: None Quantitative Blood Loss (ml): 74 Anesthesia type: Epidural Narrative: Cord gasses collected and handed off to staff. Mother and baby in stable condition. Baby Date of : 10/19/21 Time of : 13:23 Weeks of gestation at delivery: 39 Infant gender: Female Weight (pounds): 7 Weight (ounces): 2 position: Left Occiput Anterior cord vessel description: Nuchal Cord, Loose and Reduced
[2021-10-19] MEDS: OXYTOCIN 30 UNITS/NS 500 ML 30 UNITS/500 ML BAG 125 UNITS IV CONT (14:03)
[2021-10-19] MEDS: WITCH HAZEL 40 PADS 1 PAD TOPICAL (15:38)
[2021-10-19] MEDS: BENZOCAINE 20% AER SPR (*SP) 56 GM CAN 1 SPRAY TOPICAL (15:38)
--- NOTE | 2021-10-19 16:22 | PC.NURSE ---
Patient transferred to post room #282 per wheelchair from labor and delivery. Support person present. Oriented to unit, room, information board, rooming in, admission packet and security measures. Patient verbalizes understanding.
[2021-10-19] MEDS: IBUPROFEN 600 MG TABLET PO (19:49)
[2021-10-20] VITALS: BP 111/58; PULSE 75; RESP 18; TEMP 36.7; O2SAT 99
[2021-10-20] MEDS: IBUPROFEN 600 MG TABLET PO ×2 (01:48→10:05)
[2021-10-20 04:05] VITALS: BP 112/62; PULSE 79; RESP 16; TEMP 36.8; O2SAT 98
[2021-10-20 05:39] LABS: Hematocrit 31.8 % (37.0-47.0); Hemoglobin 10.4 g/dL (12.0-15.0)
--- NOTE | 2021-10-20 07:00 | PC.NURSE ---
PT introductions made and plan of care discussed per post , pain management, breast feeding, daily care activities and pending discharge to home. PT received instructions via one to one discussion mom baby care guide and demonstrations during this shift. PT sole recipient of such instructions and no barriers to learning identified at this time. PT verbalized understanding of such care.
[2021-10-20] MEDS: MULTIVIT/MIN/PREN/FOL AC/IRON TABLET 1 TAB PO (10:05)
[2021-10-20] MEDS: ACETAMINOPHEN 325 MG TABLET 650 MG PO (10:06)
[2021-10-20 10:30] VITALS: BP 110/61; PULSE 75; RESP 18; TEMP 36.6; O2SAT 99
--- NOTE | 2021-10-20 12:55 | WPDANLDPN2 ---
Anes-Prog Note L&D Date/Time: 10/20/21 12:55 Comfortable throughout: labor and delivery Neuraxial method: epidural Epidural/Spinal procedure site: clean & non-tender Neuro status: Neuro function grossly intact. Cardiovascular status: normal Respiratory status: normal Airway patency: baseline Mental status: baseline Post-Op hydration status: normal Vital Signs: Last Vital Signs Temp 36.6 C 10/20/21 10:30 Pulse 75 10/20/21 10:30 Resp 18 10/20/21 10:30 BP 110/61 10/20/21 10:30 Pulse Ox 99 10/20/21 10:30 Pain score (VAS): 09/24 I/O: Intake & Output 10/19/21 10/20/21 10/20/21 23:59 07:59 15:59 Intake Total 500 Output Total 138 Balance 362 Post-procedural complaints: none Patient feedback: Patient satisfied with anesthetic care.
--- NOTE | 2021-10-20 13:00 | PM.OBPNVD ---
OB - PN: Subj Subjective Date/time seen: 10/20/21 13:00 Patient comments: no complaints, pain well controlled, incisional pain, tolerating diet and flatus present OB - PN: Obj Data Labs CBC & Chem 7: 10/20/21 05:07 Labs: Laboratory Results - last 24 hr 10/20/21 05:07 Hgb 10.4 L Hct 31.8 L OB - PN A/P Plan day: 1 Plan: routine care Comments: No problems, routine care Patient would like to be discharged. Time Spent With Patient Time: Total time spent is greater than 50% in coordination of care (as documented) at patient's floor/unit and/or counseling patient: Exam Const: General: comfortable, no acute distress and alert Resp: Effort & Inspection: normal respiratory effort Auscultation: no crackles, no rales and no rhonchi Cardio: Rate: regular rate Heart sounds: no click, no murmurs and no rubs GI: Inspection: non-distended GI Palp: No Tenderness to palpation present (GI) Auscultation: normal bowel sounds Other: Incision - CDI Extrem: General: normal to inspection, no pedal edema and no calf tenderness
--- NOTE | 2021-10-20 13:03 | PM.OBDSVD ---
DS: Admitting Diagnosis Discharge Date 10/20/2021 Admitting Diagnosis Term DS: Discharge Diagnosis Discharge Diagnosis (1) Term delivered: Code(s): O80 - Encounter for full-term uncomplicated delivery Status: Acute OB - DS: Summary OB Procedures : None OB Procedures Intrapartum: Spontaneous Vag Delivery OB Procedures: : None Peripartum Data Delivery Method: Natural Vaginal Time Spent with Patient Time attestation: Total time spent providing and/or coordinating discharge services: DS: Data Data Completed and Pending Labs on day of discharge: Labs from last 24 hours 10/20/21 05:07 Hgb 10.4 L Hct 31.8 L Discharge Plan Discharge Discharging Clinician: Abida Washington Patient Disposition: Home, Self-Care Activity: pelvic rest Diet: regular Discharge Instructions: Education: Mom and Baby Guide Given to: Mother Follow-Up: Call your delivering provider's office for an appointment to be seen in: 4 Weeks Mom and baby should come to the [facility] for the follow-up appointment. Appointment Date/Time: October 22, 2021 at 11:00 am What to expect at your follow-up visit: Blood Pressure Check Call [phone] if you are unable to keep your appointment time. BREAST CARE: * Wear a snug supportive bra. * For engorgement discomfort: Breast Feeding: * Apply warm moist washcloths * Express milk as needed to relieve engorgement * Wear loose clothing Bottle Feeding: * May apply ice packs * For sore nipples: * Identify correct latch-on * Apply warm moist washcloths before and after nursing * Air dry nipples after nursing * May apply Lansinoh cream to nipples PERINEAL CARE: * Until bleeding stops, use your codie bottle after urinating * Change your pad frequently throughout the day * You may take sitz baths several times a day (fill your bathtub with warm water and soak for 20 minutes.) Do NOT bathe in the water * No tub baths until seen by your physician - You may shower ACTIVITY: * Rest as much as possible. * Do not exercise or lift anything heavier than your baby (such as laundry or other children.) * Avoid stairs or driving as much as possible. * Do not put anything into the vagina. No douching, tampons, or sexual activity until seen by physician. NOTIFY PHYSICIAN IF YOU HAVE ANY QUESTIONS OR IF ANY OF THE FOLLOWING SYMPTOMS OCCUR: * If your perineum becomes red, swollen, or more painful than what you have experienced in the hospital. * If your vaginal bleeding becomes foul smelling. * If your vaginal bleeding becomes more heavy than a period or if your bleeding changes from pink to bright red. However, you may pass an occasional walnut-sized clot once or twice for the first week . * If you experience a sharp, shooting pain in you calves. * If you discover a hard, reddened area on your breast or if you experience flu-like symptoms. * If you have a fever of 100.4 or greater DIET: * Eat regular, well-balanced meals. * Drink plenty of fluids daily. If , drink to thirst. Patient Instructions: Antibiotic Form Stand Alone Forms: General Discharge Information Follow-up/Referrals: Abida Washington MD [Physician] - Discharge Medications: Continued cholecalciferol (vitamin D3) [Vitamin D3] 50 mcg (2,000 unit) Capsule 2,000 unit PO DAILY RF: 0 prenat.vits,scott,jdb-dnnb-ptgbi Tablet 1 tablet DAILY RF: 0 Date of admission: 10/19/21 07:28 Primary Care Provider: PHYSICIAN,STUDIO MODEL Admitting Provider: Abida Washington Attending physician on admission: Abida Washington Condition: Stable
[2021-10-23 11:30] VITALS: BP 114/63; PULSE 74; RESP 16; TEMP 37.1; O2SAT 99
== END 2021-10-20 15:30 | disposition home or self-care (01) | DRG 560 ==
LOC: ANHLDR 07:36 → ANHOB2 16:48
PROVIDERS: Advanced Practice Midwife; Admitting Provider Obstetrics & Gynecology; Visit Provider Obstetrics & Gynecology
DX: O76 Abnormality in fetal heart rate and rhythm complicating labor and delivery (principal); O69.81X0 Labor and delivery complicated by cord around neck, without compression, not applicable or unspecified; Z3A.39 39 weeks gestation of pregnancy; Z37.0 Single live birth; E78.70 Disorder of bile acid and cholesterol metabolism, unspecified
CPT/HCPCS: 36415; 85014; 85018; 85025; 86592; 86850; 86900; 86901; A9270; J2370; J2590; J3010; J7120